=== PATIENT | female | born 1990 | race Asian ===

== ENCOUNTER 2018-01-14 02:33 | Observation (INO) | payer SELFPAY ==
[~2018-01-14] VITALS: Ht 165.1 cm; Wt 63.5 kg
[2018-01-14] MEDS ORDERED: PNV1TABL50 PO (02:45)
== END 2018-01-14 02:55 | disposition home or self-care (01) ==
LOC: L&D 02:33
PROVIDERS: ADMIT Specialist; ATTEND Specialist
DX: O99.89 Other specified diseases and conditions complicating pregnancy, childbirth and the puerperium (principal); M54.5 Low back pain; Z3A.35 35 weeks gestation of pregnancy
CPT/HCPCS: 99281; G0378